=== PATIENT | female | born 1955 | race Caucasian/White ===

== ENCOUNTER 2016-10-21 20:28 | Emergency (ER) | payer OTHER ==
--- NOTE | ~2016-10-21 | EKG ---
PATIENT: MELISSA ROLDAN UNIT #: [id number] Ventricular Rate: 77 BPM Atrial Rate: 77 BPM P-R Interval: 174 ms QRS Duration: 80 ms Q-T Interval: 388 ms QTC Calculation(Bezet): 439 ms P [place]: 50 degrees Calculated R [place]: 21 degrees Calculated T [place]: 46 degrees Diagnosis Line: Normal sinus rhythm Diagnosis Line: Nonspecific T wave abnormality Diagnosis Line: Otherwise normal ECG Diagnosis Line: When compared with ECG of 25-JUL-2011 10:24, Diagnosis Line: No significant change was found Diagnosis Line: Confirmed by MARGARITA HERRERA MD ([id number]) on 10/22/2016 Diagnosis Line: 9:40:08 AM INTERPRETING MD: JAVIER FORD
--- NOTE | ~2016-10-21 | CR72 ---
[facility] A Service of [facility] RADIOLOGY TEXT RESULTS PATIENT: MELISSA ROLDAN LOCATION: [facility] : 53 UNIT #: [id number] AGE: [address]: Kimo Bolaños MD SEX: F ORDER DR: [id number] [facility] [address] [place], [place] [address] [id number] MR#: [id number] Acc #: [id number] NAME: MELISSA ROLDAN. : 1955 SEX: F STUDY DATE/TIME: 10/21/2016 20:20 UNIT: [facility] ROOM: STUDY DESCRIPTION: CR Chest Single View Portable Attending Physician: Kimo Bolaños M.D. Ordering Physician: Kimo Bolaños M.D. Primary Care Physician: Darci Haynes M.D. MEDICAL IMAGING REPORT This report is preliminary unless electronic signature is present EXAM Portable chest. DATE OF EXAM 10/21/2016 HISTORY Chest pain, chest tightness, shortness of breath and low blood pressure beginning yesterday. FINDINGS A single AP portable view of the chest shows both lungs to be clear. The heart is normal in size. The mediastinal contour is normal. No significant bone abnormalities are seen. IMPRESSION Normal portable chest. Dictated by... Andrew Skelton M.D. THIS IS AN ELECTRONICALLY VERIFIED REPORT Andrew Skelton M.D. at 10/22/2016 2:14 PM ASHLY/chuy TD: 10/21/2016 22:40 JOB #: [id number] [facility] A Service of [facility] RADIOLOGY TEXT RESULTS PATIENT: MELISSA ROLDAN LOCATION: [facility] : 53 UNIT #: [id number] AGE: [address]: Kimo Bolaños MD SEX: F ORDER DR: MEDICAL IMAGING REPORT Page 1 of 1 COPY
[2016-10-21 19:44] LABS: BASOPHIL% 0.6 % (0-2.5); EOSINOPHIL# 0.1 X10e3 (0-0.7); HEMATOCRIT 41.9 % (35.0-45.0); HEMOGLOBIN 13.8 gm/dL (12.0-16.0); LYMPHOCYTE# 2.8 X10e3 (1.0-3.5); LYMPHOCYTE% 39.3 % (17.0-45.0); MEAN CORPUSCULAR HEMOGLOBIN 30.3 PG (28-34); MEAN CORPUSCULAR HGB CONC 32.9 g/dL (30-36); MEAN PLATELET VOLUME 6.4 FL (6.5-11.5); MONOCYTE# 0.6 X10e3 (0-1.0); MONOCYTE% 7.9 % (3.0-12.0); NEUTROPHIL# 3.7 X10e3 (1.5-7.1); NEUTROPHIL% 51.2 % (40-75); PLATELET COUNT 225 X10e3 (140-420); RED BLOOD COUNT 4.56 X10e (3.90-5.30); RED CELL DISTRIBUTION WIDTH 14.3 % (11.0-15.5); WHITE BLOOD COUNT 7.2 X10e3 (4.0-10.5)
[2016-10-21 19:48] LABS: DIFF IND NO
[2016-10-21 20:08] LABS: ALBUMIN SERUM 4.5 g/dL (3.5-5.0); BILIRUBIN, DIRECT 0.1 mg/dL (0.0-0.2); BILIRUBIN,INDIRECT 0.5 mg/dL (0.0-0.9); BILIRUBIN,TOTAL 0.6 mg/dL (0.2-2.0); BUN/CREATININE RATIO 25.45; CREATININE SERUM 1.1 mg/dL (0.6-1.4); GLOM FILT RATE Estimated 53.8 mL/min (>60); POTASSIUM 3.9 mmol/L (3.5-5.1); PROTEIN TOTAL SERUM 7.8 g/dL (6.0-8.3)
[2016-10-21 20:20] LABS: POC - CKMB 2.5 ng/mL (0.0-7.9); POC - TROPONIN <0.05 ng/mL (<=0.05)
[~2016-10-21 20:28] MED LIST: ADDERALL PO; ADDERALL10 MG PO; ADDERALL20 MG DOB; ADDERALL20 MG PO; ADVAIR 5001 DISK W/D PO; B COMPLEX1 CA1 PO; CIPRO750 M1 PO; COMBIVENT INH14.7 GM INH; COMBIVENT14.7 GM INH; EFFEXOR PO; EFFEXOR-XR75 MG PO; EFFEXOR75 MG PO; ESTROGEN PO; FLONASE16 GM; FOLIC ACID800 MCG PO; LISINOPRIL PO; LISINOPRIL20 MG PO; METOPROLOL SUC100 MG PO; MOBIC15 MG PO; MONTELUKAST SOD10 MG PO; MULTIVITAMIN1 UDCAP PO; NITROFURANTOIN50 M1 PO; PLAQUENIL200 MG PO; PROGESTRONE PO; PROTONIX PO; SINGULAIR PO; STOOL SOFTENER1 EACH PO; TOPROL XL PO; TOPROL XL100 MG PO; VITAMIN D-32000 UNIT PO; VITAMIN D32000 UNI1 PO; ZYRTEC PO; ZYRTEC10 M2 PO
== END 2016-10-21 21:28 | disposition home or self-care (01) ==
LOC: CED 20:28
PROVIDERS: Emergency Medicine
DX: R07.9 Chest pain, unspecified (principal); I10 Essential (primary) hypertension; Z88.5 Allergy status to narcotic agent; Z88.8 Allergy status to other drugs, medicaments and biological substances
CPT/HCPCS: 36415; 71010; 80048; 80076; 82553; 84484; 85025; 85379; 93005; 99284